=== PATIENT | female | born 1980 | race Caucasian/White ===

== ENCOUNTER → 2024-07-12 16:26 | Outpatient (CLI) | payer OTHER, SELFPAY ==
[2024-07-12 17:19] LABS: Add Manual Diff / Slide Review NO; Basophils Absolute Auto 0 /uL (0-100); Basophils Percent Auto 0.3 % (0-2); Eosinophils Absolute Auto 200 /uL (0-450); Eosinophils Percent Auto 3.2 % (2-4); Hematocrit 38.2 % (36-46); Lymphocytes Absolute Auto 2000 /uL (1100-4500); Lymphocytes Percent Auto 28.3 % (25-40); Mean Corpuscular Hemoglobin 32.7 PG (26-34); Mean Corpuscular Volume 96.4 fL (80-100); Monocytes Absolute Auto 700 /uL (0-900); Monocytes Percent Auto 9.9 % (3-14); Neutrophils Absolute Auto 4100 /uL (1500-7000); Neutrophils Percent Auto 58.3 % (50-75); Platelet Count 222 X10^3/uL (150-400); Red Blood Cell Count 3.96 X10^6/uL (4.0-5.2); Red Cell Distribution Width 12.9 % (11.6-14.8); White Blood Cell Count 7.1 X10^3/uL (4.5-11.0)
== END ==
PROVIDERS: Referring Provider Internal Medicine Critical Care Medicine; Visit Provider Internal Medicine Critical Care Medicine
DX: R05.3 Chronic cough (principal)
CPT/HCPCS: 36415; 82785; 85025; 86003

== ENCOUNTER → 2024-08-02 15:41 | Outpatient (CLI) | payer OTHER, SELFPAY | PROVIDERS: Referring Provider Internal Medicine Critical Care Medicine; Visit Provider Internal Medicine Critical Care Medicine | DX: R05.3 Chronic cough (principal) | CPT/HCPCS: 94060; 94726; 94729 ==

== ENCOUNTER → 2024-09-20 15:32 | Outpatient (CLI) | payer OTHER, SELFPAY ==
--- NOTE | 2024-09-20 15:35 | DI.CT.S_ITS ---
PROCEDURE: CT CHEST WO CON INDICATIONS: productive cough TECHNIQUE: Noncontrast 5 mm thick sections acquired from the pulmonary apices to the posterior costophrenic angles. 1 mm lung window, 5 mm thick coronal and sagittal and 7 mm axial MIP reformats were then acquired. For radiation dose reduction, the following was used: automated exposure control, adjustment of mA and/or kV according to patient size. COMPARISON: None. FINDINGS: Image quality: Diagnostic. Lower Neck: No enlarged lymph nodes. Thyroid: Normal CT appearance. Axillae: No enlarged lymph nodes. Chest Wall: No suspicious chest wall mass. Intact breast prostheses. Heart: Heart size is normal. No pericardial effusion. Thoracic Vessels: The aorta and pulmonary arteries demonstrate normal size. Mediastinum and Zabrina: 0.9 cm anterior mediastinal nodule and indistinct AP window lymph nodes, low-density and nonspecific. No hilar adenopathy. Esophagus: No wall thickening. No hiatal hernia. Lungs and Pleura: Central and peripheral airways are normal without bronchial wall thickening or bronchiectasis. Minor linear vertical atelectasis medial left lower lobe. Minor posterior gravitational changes. No suspicious nodule, mass, consolidation, or ground-glass opacity. No pneumothorax, pleural effusion, or pleural calcification. Upper Abdomen: Visualized upper abdomen solid organs and bowel loops appear normal. IMPRESSION: No significant pulmonary parenchymal pathology noted. Nonspecific and borderline AP window and anterior mediastinal lymph nodes, physiologic versus reactive. Dictated by: Nori Schroeder M.D. on 09/20/2024 at 20:28 Approved by: Nori Schroeder M.D. on 09/20/2024 at 20:33
== END ==
PROVIDERS: Referring Provider Internal Medicine Critical Care Medicine; Visit Provider Internal Medicine Critical Care Medicine
DX: R05.3 Chronic cough (principal)
CPT/HCPCS: 71250